=== PATIENT | male | born 1960 | race Caucasian/White ===

== ENCOUNTER 2017-05-02 02:44 | Emergency (ER) | payer SELFPAY ==
[2017-05-02 02:59] VITALS: RESP 20; O2SAT 95
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
--- NOTE | 2017-05-02 06:08 | C.PDOC ---
Time Seen by Provider: 05/02/17 03:18 Chief Complaint (Nursing): Substance Abuse Past Medical History Vital Signs: Last Vital Signs Temp 98.2 F 05/02/17 02:55 Pulse 101 H 05/02/17 02:55 Resp 20 05/02/17 02:55 BP 118/76 05/02/17 02:55 Pulse Ox 95 05/02/17 02:55 - Medical History PMH: Denies: Chronic Kidney Disease Family History: States: Unknown Family Hx - Social History Hx Alcohol Use: Yes Hx Substance Use: No - Immunization History Hx Tetanus Toxoid Vaccination: No Hx Influenza Vaccination: No Hx Pneumococcal Vaccination: No ED Course And Treatment O2 Sat by Pulse Oximetry: 95 Disposition - Disposition
[2017-05-02 06:13] VITALS: BP 120/71; PULSE 89; TEMP 97.2
== END 2017-05-02 06:12 | disposition home or self-care (01) ==
LOC: C.ER 02:44
DX: F10.10 Alcohol abuse, uncomplicated (principal); Y90.9 Presence of alcohol in blood, level not specified